=== PATIENT | female | born 1945 | race Caucasian/White ===

== ENCOUNTER → 2021-03-04 | Day surgery (SDC) | payer OTHER | END | disposition home or self-care (01) | LOC: FMAMMOTONE 08:37 | PROVIDERS: ATTEND Surgery | PROC: 0HBU3ZX Excision of Left Breast, Percutaneous Approach, Diagnostic (ICD-10-PCS; principal; 2021-03-04) | DX: N60.32 Fibrosclerosis of left breast (principal); N60.82 Other benign mammary dysplasias of left breast; N64.89 Other specified disorders of breast; R92.1 Mammographic calcification found on diagnostic imaging of breast | CPT/HCPCS: 19081; 88305-TC; A4648 ==

== ENCOUNTER 2022-01-07 12:01 | Inpatient (IN) | payer OTHER ==
[2022-01-07] MEDS ORDERED: SODIUM CHLORIDE 0.9% 500 ML INFUS.BAG IV ONE ×2 (14:13→19:00)
[2022-01-07 15:49] LABS: CHLORIDE 73 mmol/L (98-107)
[2022-01-07 15:53] LABS: BLOOD UREA NITROGEN 7.7 mg/dL (7-18); CALCIUM 8.9 mg/dL (8.5-10.1)
[2022-01-07 15:54] LABS: ALBUMIN 3.8 g/dl (3.4-5.0); CO2 23 mmol/L (21-32); GLUCOSE,RANDOM 124 mg/dL (74-106)
[2022-01-07 15:56] LABS: CREATININE 0.4 mg/dL (0.55-1.3); SGOT/AST 43 U/L (15-37); SGPT/ALT 21 U/L (13-61)
[2022-01-07 15:58] LABS: BILIRUBIN,TOTAL 0.8 mg/dL (0.2-1); TOT PROT 7.5 g/dl (6.4-8.2)
[2022-01-07 16:00] LABS: ALK PHOS 86 U/L (45-117)
[2022-01-07 16:21] LABS: ANION GAP 17 MMOL/L (8-16); SODIUM 114 mmol/L (136-145)
[2022-01-07 16:47] LABS: BASO % 0.3 % (0-2.0); EOS % 0.1 % (0-4.5); HEMATOCRIT 40.9 % (32.4-45.2); HEMOGLOBIN 14.5 GM/dL (10.7-15.3); LYMPH % 21.3 % (8-40); MCH 28.4 pg (25.7-33.7); MCHC 35.3 g/dl (32.0-36.0); MEAN CELL VOLUME 80.3 fl (80-96); MEAN PLT VOLUME 9.5 fl (7.5-11.1); MONO % 12.2 % (3.8-10.2); NEUT % 66.1 % (42.8-82.8); PLATELET COUNT 201 10^3/uL (134-434); WHITE BLOOD COUNT 4.8 K/mm3 (4.0-10.0)
[2022-01-07] MEDS ORDERED: SODIUM CHLORIDE 3% 500 ML/500 ML INFUS.BAG IV ONE ×2 (18:28→19:01)
[2022-01-07] MEDS ORDERED: POTASSIUM CHLORIDE TABS 10 MEQ TABLET.ER (FP) PO ONE (18:28)
[2022-01-07 18:43] LABS: ALBUMIN 3.5 g/dl (3.4-5.0); ALK PHOS 80 U/L (45-117); ANION GAP 15 MMOL/L (8-16); BILIRUBIN,TOTAL 0.6 mg/dL (0.2-1); BLOOD UREA NITROGEN 5.9 mg/dL (7-18); CALCIUM 8.4 mg/dL (8.5-10.1); CHLORIDE 77 mmol/L (98-107); CO2 22 mmol/L (21-32); CREATININE 0.4 mg/dL (0.55-1.3); GLUCOSE,RANDOM 124 mg/dL (74-106); SGOT/AST 38 U/L (15-37); SGPT/ALT 20 U/L (13-61); SODIUM 114 mmol/L (136-145); TOT PROT 7.1 g/dl (6.4-8.2)
[2022-01-07] MEDS ORDERED: amLODIPine BESYLATE 5 MG TABLET (FP) PO ONE (19:06)
[2022-01-07] MEDS ORDERED: SODIUM CHLORIDE 1,000 ML IV SCH ×2 (19:15)
[2022-01-07] MEDS ORDERED: KCL 10 MEQ IVPB 10 MEQ/100 ML INFUS.BAG IVPB ONE (20:09)
[2022-01-07] MEDS: KCL 10 MEQ IVPB 10 MEQ/100 ML INFUS.BAG IVPB SCH ×3 (20:20→23:45)
[2022-01-07] MEDS ORDERED: POTASSIUM CHLORIDE TABS 20 MEQ TABLET.ER (FP) PO ONE (20:38)
[2022-01-07] MEDS ORDERED: amLODIPine BESYLATE 5 MG TABLET (FP) ONE ×2 (20:38→20:41)
[2022-01-07 21:09] LABS: CHLORIDE 77 mmol/L (98-107)
[2022-01-07 21:11] LABS: CALCIUM 8.6 mg/dL (8.5-10.1)
[2022-01-07 21:12] LABS: BLOOD UREA NITROGEN 6.3 mg/dL (7-18); CO2 23 mmol/L (21-32); GLUCOSE,RANDOM 103 mg/dL (74-106)
[2022-01-07 21:14] LABS: CREATININE 0.4 mg/dL (0.55-1.3)
[2022-01-07 21:15] LABS: ANION GAP 16 MMOL/L (8-16); SODIUM 115 mmol/L (136-145)
[2022-01-07] MEDS ORDERED: KCL 10 MEQ IVPB 20 MEQ/200 ML INFUS.BAG IVPB ONE (21:48)
[2022-01-07] MEDS ORDERED: CHLORHEXIDINE GLUCONATE 4% CLEANSER FOR DECOLONIZATION TP SCH (22:00)
[2022-01-08 00:04] LABS: CALCIUM 8.9 mg/dL (8.5-10.1); CHLORIDE 78 mmol/L (98-107)
[2022-01-08 00:06] LABS: BLOOD UREA NITROGEN 5.7 mg/dL (7-18); CO2 27 mmol/L (21-32); GLUCOSE,RANDOM 104 mg/dL (74-106)
[2022-01-08 00:09] LABS: CREATININE 0.5 mg/dL (0.55-1.3)
[2022-01-08 00:10] LABS: ANION GAP 13 MMOL/L (8-16); SODIUM 118 mmol/L (136-145)
[2022-01-08 01:04] LABS: CHLORIDE 81 mmol/L (98-107)
[2022-01-08 01:09] LABS: BLOOD UREA NITROGEN 6.9 mg/dL (7-18); CALCIUM 8.6 mg/dL (8.5-10.1); CO2 24 mmol/L (21-32); GLUCOSE,RANDOM 98 mg/dL (74-106)
[2022-01-08 01:13] LABS: CREATININE 0.4 mg/dL (0.55-1.3)
[2022-01-08 02:29] LABS: ANION GAP 12 MMOL/L (8-16); SODIUM 117 mmol/L (136-145)
[2022-01-08 03:21] LABS: MAGNESIUM 1.8 mg/dL (1.8-2.4)
[2022-01-08 03:23] LABS: PHOSPHOROUS 2.1 mg/dL (2.5-4.9)
[2022-01-08 04:59] LABS: BLOOD UREA NITROGEN 6.8 mg/dL (7-18); CALCIUM 8.4 mg/dL (8.5-10.1)
[2022-01-08 05:02] LABS: CREATININE 0.5 mg/dL (0.55-1.3)
[2022-01-08 05:19] LABS: CALCIUM 8.9 mg/dL (8.5-10.1)
[2022-01-08 05:20] LABS: BLOOD UREA NITROGEN 6.4 mg/dL (7-18)
[2022-01-08 05:24] LABS: CREATININE 0.5 mg/dL (0.55-1.3)
[2022-01-08 09:27] LABS: BLOOD UREA NITROGEN 6.7 mg/dL (7-18)
[2022-01-08 09:30] LABS: CREATININE 0.5 mg/dL (0.55-1.3)
[2022-01-08] MEDS ORDERED: ENOXAPARIN NA (PORCINE) 40 MG/0.4 ML DISP.SYRIN SQ SCH (10:00)
[2022-01-08] MEDS ORDERED: ENOXAPARIN NA (PORCINE) 40 MG/0.4 ML DISP.SYRIN SQ ONE (11:22)
[2022-01-08] MEDS ORDERED: POTASSIUM CHLORIDE TABS 20 MEQ TABLET.ER (FP) PO ONE ×2 (12:00→13:14)
[2022-01-08 17:46] LABS: ALBUMIN 3.5 g/dl (3.4-5.0); BLOOD UREA NITROGEN 12.4 mg/dL (7-18)
[2022-01-08 17:48] LABS: PHOSPHOROUS 2.4 mg/dL (2.5-4.9)
[2022-01-08 17:49] LABS: CREATININE 0.6 mg/dL (0.55-1.3)
[2022-01-08 17:50] LABS: BILIRUBIN,TOTAL 0.4 mg/dL (0.2-1); TOT PROT 7.1 g/dl (6.4-8.2)
[2022-01-08 18:37] LABS: BLOOD UREA NITROGEN 11.2 mg/dL (7-18); CALCIUM 9.2 mg/dL (8.5-10.1)
[2022-01-08 18:41] LABS: CREATININE 0.6 mg/dL (0.55-1.3)
[2022-01-08] MEDS: MUPIROCIN 2% TOPICAL OINTMENT FOR DECOLONIZATION NS SCH (20:23)
[2022-01-08] MEDS ORDERED: ATORVASTATIN CA 40 MG TABLET (FP) PO SCH (22:00)
[2022-01-09 01:07] VITALS: BMI 23.6
[2022-01-09 02:55] LABS: CALCIUM 8.8 mg/dL (8.5-10.1)
[2022-01-09 02:56] LABS: BLOOD UREA NITROGEN 14.3 mg/dL (7-18)
[2022-01-09 03:00] LABS: CREATININE 0.5 mg/dL (0.55-1.3)
[2022-01-09 08:45] LABS: BASO % 0.4 % (0-2.0); EOS % 1.1 % (0-4.5); HEMATOCRIT 40.7 % (32.4-45.2); HEMOGLOBIN 14.3 GM/dL (10.7-15.3); LYMPH % 25.4 % (8-40); MCH 28.9 pg (25.7-33.7); MCHC 35.3 g/dl (32.0-36.0); MEAN PLT VOLUME 8.9 fl (7.5-11.1); MONO % 9.5 % (3.8-10.2); NEUT % 63.6 % (42.8-82.8); PLATELET COUNT 267 10^3/uL (134-434); RBC 4.96 M/mm3 (3.60-5.2); RDW 14.3 % (11.6-15.6)
[2022-01-09 08:55] LABS: EPI CELLS 4 /uL (0-25.1); HYALINE CASTS 0 /uL (0-3.1); PH,URINE 6.5 (5.0-8.0); URINE APPEARANCE CLEAR; URINE BACTERIA 3 /uL (0-1359); URINE BILIRUBIN NEGATIVE (NEGATIVE); URINE COLOR YELLOW; URINE GLUCOSE (UA) NEGATIVE (NEGATIVE); URINE KETONE NEGATIVE (NEGATIVE); URINE LEUK ESTERASE TRACE (NEGATIVE); URINE NITRITE NEGATIVE (NEGATIVE); URINE PROTEIN NEGATIVE (NEGATIVE); URINE RBC 9 /uL (0-23.9); URINE WBC 19 /uL (0-25.8)
[2022-01-09 09:10] LABS: MAGNESIUM 2.1 mg/dL (1.8-2.4)
[2022-01-09 09:11] LABS: PHOSPHOROUS 2.6 mg/dL (2.5-4.9)
[2022-01-09 09:43] LABS: BLOOD UREA NITROGEN 11.8 mg/dL (7-18); CALCIUM 9.1 mg/dL (8.5-10.1)
[2022-01-09 09:47] LABS: CREATININE 0.5 mg/dL (0.55-1.3)
[2022-01-09] MEDS: ENOXAPARIN NA (PORCINE) 40 MG/0.4 ML DISP.SYRIN SQ SCH (10:23)
[2022-01-09] MEDS: ATORVASTATIN CA 40 MG TABLET (FP) PO SCH (22:04)
[2022-01-10] MEDS ORDERED: POLYETHYLENE GLYCOL (HEALTHYLAX) 3350 17 GM PACKET PO ONE ×2 (00:50→06:15)
[2022-01-10] MEDS: ENOXAPARIN NA (PORCINE) 40 MG/0.4 ML DISP.SYRIN SQ SCH (09:01)
[2022-01-10] MEDS ORDERED: SENNOSIDES 8.6MG TABLET (FP) PO PRN (09:18)
[2022-01-10] MEDS ORDERED: DOCUSATE SODIUM 100 MG CAPSULE (FP) PO PRN (09:18)
[2022-01-10] MEDS: POLYETHYLENE GLYCOL (HEALTHYLAX) 3350 17 GM PACKET PO SCH ×2 (10:39→21:43)
[2022-01-10] MEDS ORDERED: GLYCERIN 1 RECTAL SUPPOSITORY, ADULT RC ONE (13:45)
[2022-01-10] MEDS: ATORVASTATIN CA 40 MG TABLET (FP) PO SCH (21:43)
[2022-01-11 06:40] VITALS: RESP 18
[2022-01-11 08:00] LABS: CALCIUM 8.7 mg/dL (8.5-10.1)
[2022-01-11 08:01] LABS: BLOOD UREA NITROGEN 8.5 mg/dL (7-18)
[2022-01-11 08:04] LABS: CREATININE 0.5 mg/dL (0.55-1.3)
[2022-01-11] MEDS: ENOXAPARIN NA (PORCINE) 40 MG/0.4 ML DISP.SYRIN SQ SCH (10:02)
[2022-01-11] MEDS: POLYETHYLENE GLYCOL (HEALTHYLAX) 3350 17 GM PACKET PO SCH (10:03)
[2022-01-11 14:50] VITALS: BP 133/82; PULSE 81; TEMP 98.4
== END 2022-01-11 14:59 | disposition home or self-care (01) | DRG 640 ==
LOC: JER 12:01 → JERBED 18:04 → J4S 01-08 20:54
PROVIDERS: ADMIT Internal Medicine Pulmonary Disease; ATTEND Internal Medicine
DX: E87.1 Hypo-osmolality and hyponatremia (principal); G92.8 Other toxic encephalopathy; U07.1 COVID-19; I10 Essential (primary) hypertension; E87.6 Hypokalemia; R53.83 Other fatigue; R11.10 Vomiting, unspecified; R51.9 Headache, unspecified
CPT/HCPCS: 36415; 71046-TC-FY; 80048; 80053; 81003; 82436; 82533; 83735; 83930; 83935; 84100; 84133; 84300; 84439; 84443; 85025; 93005; 93010; 97116-GP; 97161-GP; 99285-25; C9803-CS; U0003; U0005